=== PATIENT | male | born 1935 | race Caucasian/White ===

== ENCOUNTER 2023-11-24 10:38 | Day surgery (SDC) | payer MEDICARE ==
[~2023-11-24] VITALS: Ht 182.9 cm; Wt 88.1 kg
[~2023-11-24 10:38] MED LIST: ADULT LOW DOSE81 MG PO; FLOMAX0.4 MG PO; IBLOOD GLUCOSE TEST STRIP 1 EA TEST VI PRN; LACTATED RINGER'S 1,000 ML IV SCH; LIDOCAINE HCL 1% 5 ML SDV INJ ONE; LIDOCAINE HCL 4% 50 ML BTL TOP SCH; LISINOPRIL20 MG PO; METOPROLOL TART25 MG PO; OMEPRAZOLE20 MG PO; ZOCOR40 MG PO
[2023-11-24 11:02] VITALS: BP 146/95
[2023-11-24] MEDS ORDERED: MIDAZOLAM HCL 5 MG/5 ML VIAL ONE (11:10)
[2023-11-24] MEDS ORDERED: fentaNYL citrate 100 MCG/2 ML VIAL ONE (11:10)
--- NOTE | 2023-11-24 12:17 | NUR ---
11/24/23 Evelia7 Cat Rangel 1212- PT ARRIVES TO PACU REACTIVE TO VOICE. PT DENIES ANY PAIN OR NAUSEA. RESP EVEN AND UNLABORED. OXYGEN SAT LOW 90'S ON RA.
[2023-11-24 13:01] VITALS: BP 167/92
--- NOTE | 2023-11-26 10:52 | PATH ---
[facility] [address], [place] [address] Signed SPECIMEN(S): A DUODENAL BIOPSY SPECIMEN(S): B ANTRUM BIOPSY SPECIMEN(S): C DISTAL ESOPHAGEAL BIOPSY SPECIMEN(S): D MIDDLE ESOPHAGEAL BIOPSY SPECIMEN SOURCE: A. DUODENAL BIOPSY B. ANTRUM BIOPSY C. DISTAL ESOPHAGEAL BIOPSY D. MIDDLE ESOPHAGEAL BIOPSY CLINICAL HISTORY: History dimension deformity and n/v, prepyloric submucosal neoplasm FINAL PATHOLOGIC DIAGNOSIS: A. Duodenum, biopsies: - Chronic duodenitis with Elena's gland hyperplasia, negative for active inflammation or significant villous blunting. B. Antrum, biopsy: - Minimal chronic gastritis with vascular congestion, negative for active inflammation. - No H. pylori bacteria are detected by HE stain. C. Distal esophagus, biopsies: - Benign squamous esophageal mucosa with vascular congestion, negative for esophagitis, increased eosinophils or Campos's metaplasia. D. Middle esophagus, biopsies: - Benign squamous esophageal mucosa with vascular congestion, negative for esophagitis, increased eosinophils or Campos's metaplasia. AMB MICROSCOPIC EXAMINATION: Histologic sections of all submitted blocks are examined by light microscopy. These findings, together with the gross examination, support the pathologic diagnosis. GROSS DESCRIPTION: A. The specimen, labeled and designated "Priscilla, duodenal biopsy," is received in formalin and consists of two yang soft tissue fragments, ranging from 0.2-0.3 cm. Entirely submitted in (A1). B. The specimen, labeled and designated "Piper, antrum biopsy," is received in formalin and consists of one yang soft tissue fragment, 0.3 cm. Entirely PATIENT NAME: TONY GONG PATHOLOGY DATE OF : 37 REPORT #: [id number] PHYSICIAN: MARIANNA ALDRIDGE PCP: BRIGIDA COYNE MD REPORT IS CONFIDENTIAL AND NOT TO BE RELEASED WITHOUT AUTHORIZATION [facility] [address], [place] [address] Signed submitted in (B1). C. The specimen, labeled and designated "Priscilla, distal esophageal biopsy," is received in formalin and consists of one yang soft tissue fragment, 0.6 cm. Entirely submitted in (C1). D. The specimen, labeled and designated "Priscilla, middle esophageal biopsy," is received in formalin and consists of two yang soft tissue fragments, ranging from 0.2-0.5 cm. Entirely submitted in (D1). VB (under the direct supervision of a pathologist) The Gross Description was prepared using a voice recognition system. The report was reviewed for accuracy; however, sound-alike word errors, addition and/or deletions may occur. If there is any question about this report, please contact Client Services. ADDITIONAL NOTES: Immunohistochemical and/or in situ hybridization studies if performed in this case included appropriate positive controls that reacted as expected. This test was developed and its performance characteristics determined by [facility]. It has not been cleared or approved by the U.S. Food and Drug Administration. The FDA has determined that such clearance or approval is not necessary. This test is used for clinical purposes. It should not be regarded as investigational or for research. [facility] is certified under the Clinical Laboratory Improvement Amendments of 1988 (CLIA) as qualified to perform high complexity clinical laboratory testing. PERFORMING LABORATORY: Technical component was performed by [facility], [address] [place] [id number] (CLIA# [id number]). Professional interpretation was performed by [facility] [address] [facility] [id number] Diagnostician: Jaki Portillo MD Pathologist Electronically Signed 11/26/2023 Copies: ~ PATIENT NAME: PRISCILLATONY PATHOLOGY DATE OF : 37 REPORT #: [id number] PHYSICIAN: MARIANNA ADLRIDGE PCP: BRIGIDA COYNE MD REPORT IS CONFIDENTIAL AND NOT TO BE RELEASED WITHOUT AUTHORIZATION
--- NOTE | 2023-11-29 13:47 | OR ---
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 POSTOPERATIVE DIAGNOSES: 1. Submucosal nodule consistent with gastrointestinal stromal tumor pre-pyloric area. No evidence of ulceration or bleeding. 2. Mild chronic esophagitis. PROCEDURE: Esophagogastroduodenoscopy with biopsy. ANESTHESIA: Intravenous sedation; fentanyl 100 mcg and Versed 2 mg. INDICATION: This 88-year-old white man is a patient of Dr. Abdullahi of [place], [place]. On May 03, 2023, he suffered coffee-ground emesis consistent with GI bleeding, was evaluated in [place], [place] including upper endoscopy performed on May 04, 2023 showing a distal antral submucosal lesion consistent with an ulcerated gastrointestinal stromal tumor. Medical management was employed. The patient was on an anticoagulant at that time. In the meantime, the patient has had several ground level falls, one of which resulted in possible subdural hematoma, though that is not certain to me entirely. He has been off the anticoagulants and remains on omeprazole. He currently has no symptoms of bleeding, abdominal pain, or other similar symptoms. He is admitted at this time to undergo upper endoscopy to affirm the clinical impression of gastrointestinal stromal tumor. Of note, he did have a CT scan elsewhere which showed a pre-pyloric soft tissue mass consistent with the aforementioned gastrointestinal stromal tumor. The patient understands the risk of bleeding, infection, and perforation related to upper endoscopy and wished to proceed. FINDINGS: Indeed there was a pre-pyloric submucosal mass. Interrogation with the biopsy forceps showed it to be firm and most consistent with a fibrous tumor rather than a pre-pyloric lipoma. The esophagus had mild chronic distal esophagitis. The duodenum and stomach Electronically Signed By: HIRAM MCLEAN MD 11/29/23 1347 PATIENT NAME: TONY GONG OPERATIVE REPORT DATE OF : 37 REPORT #: [id number] PHYSICIAN: HIRAM MCLEAN MD PCP: BRIGIDA COYNE MD REPORT IS CONFIDENTIAL AND NOT TO BE RELEASED WITHOUT AUTHORIZATION [facility] [address] [place], [place] [address] Signed were otherwise normal. Passage of the scope around the neoplasm through the pylorus was without too much difficulty, though the lesion is definitely juxtaposed to the pylorus itself. DESCRIPTION OF PROCEDURE: The patient was brought to the endoscopy suite and placed in the lateral decubitus position, given lidocaine topical hypopharyngeal anesthesia. A bite block was placed and was given intravenous sedation to the point of slurred speech and nystagmus. Full cardiopulmonary monitoring was maintained. An Olympus video upper endoscope was passed in the hypopharynx. The vocal cords appeared normal. Scope was advanced to the esophagus. Throughout its length, it was reasonably normal though mildly chronically inflamed in the distal portion. There was no sign of stricture or Campos's epithelium. Scope was passed to the stomach which was insufflated with air. Rugal folds were normal. The antrum itself appeared normal and in the pre-pyloric area was a smooth mass, it was obscuring the pylorus itself. It was not ulcerated, bleeding, or inflamed. With various manipulations, the scope was manipulated around the pre-pyloric mass into the duodenal bulb and beyond to the 3rd portion of the duodenum. Biopsies were taken of the duodenum to assess for celiac disease. The scope was then withdrawn and there definitely is a margin between the pylorus itself and the submucosal soft tissue mass. Interrogation of the mass with the biopsy forceps showed it to be firm and definitely submucosal, was not biopsied itself. The scope was manipulated to allow biopsy of the antrum and more proximal stomach for both YVETTE and pathologic testing. Retroflexed view showed no sign of other neoplasm. Scope was straightened and withdrawn and biopsies were taken of the distal and mid esophagus. The scope was fully removed and the patient was taken to the recovery room in good condition. 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 Typically one would resect this lesion so as to avoid future bleeding episodes. He currently has no symptoms of gastric outlet obstruction, though the location of the lesion is We will review further the advisability of resection given his advanced age and see him back in the office in the near future to more fully define a plan. In the meantime, he will stay on PPI medications. MD SABINE Rogers/MACKENZIE Electronically Signed By: HIRAM MCLEAN MD 11/29/23 1347 PATIENT NAME: TONY GONG OPERATIVE REPORT DATE OF : 37 REPORT #: [id number] PHYSICIAN: HIRAM MCLEAN MD PCP: BRIGIDA COYNE MD REPORT IS CONFIDENTIAL AND NOT TO BE RELEASED WITHOUT AUTHORIZATION [address] [address] Signed /[id number] cc: Maikol Mcknight [place] Copies: ~ Electronically Signed By: HIRAM MCLEAN MD 11/29/23 1347 PATIENT NAME: TONY GONG OPERATIVE REPORT DATE OF : 37 REPORT #: [id number] PHYSICIAN: HIRAM MCLEAN MD PCP: BRIGIDA COYNE MD REPORT IS CONFIDENTIAL AND NOT TO BE RELEASED WITHOUT AUTHORIZATION
== END 2023-11-24 13:14 | disposition home or self-care (01) ==
LOC: DS 10:38 → OPS 10:38 → DS 12:15 → OPS 12:15
PROVIDERS: ATTEND Surgery
PROC: 0DB68ZX Excision of Stomach, Via Natural or Artificial Opening Endoscopic, Diagnostic (ICD-10-PCS; 2023-11-24)
PROC: 0DB28ZX Excision of Middle Esophagus, Via Natural or Artificial Opening Endoscopic, Diagnostic (ICD-10-PCS; 2023-11-24)
PROC: 0DB38ZX Excision of Lower Esophagus, Via Natural or Artificial Opening Endoscopic, Diagnostic (ICD-10-PCS; 2023-11-24)
PROC: 0DB98ZX Excision of Duodenum, Via Natural or Artificial Opening Endoscopic, Diagnostic (ICD-10-PCS; principal; 2023-11-24 12:15)
DX: K29.50 Unspecified chronic gastritis without bleeding (principal); K29.80 Duodenitis without bleeding; K20.90 Esophagitis, unspecified without bleeding; I10 Essential (primary) hypertension; I48.20 Chronic atrial fibrillation, unspecified; Z79.82 Long term (current) use of aspirin; Z79.899 Other long term (current) drug therapy
CPT/HCPCS: 88305; 99153; G0500; J2250; J3010; J7121